=== PATIENT | female | born 1965 | race Caucasian/White ===

== ENCOUNTER 2019-04-07 18:20 | Emergency (ER) | payer SELFPAY ==
[~2019-04-07] VITALS: Ht 167.6 cm; Wt 122.5 kg
== END 2019-04-07 18:40 | disposition home or self-care (01) ==
LOC: ER 18:20
DX: L03.031 Cellulitis of right toe (principal); E11.22 Type 2 diabetes mellitus with diabetic chronic kidney disease; N18.9 Chronic kidney disease, unspecified; F32.9 Major depressive disorder, single episode, unspecified
CPT/HCPCS: 99283

== ENCOUNTER 2019-07-29 22:20 | Inpatient (IN) | payer OTHER ==
[~2019-07-29] VITALS: Ht 167.6 cm; Wt 122.5 kg
--- OUTSIDE RECORDS SUMMARY | 2019-07-29 22:23 | XMS REPORT ---
Author Author [facility] Organization [facility] Address [address] [place] [address] Phone Unavailable Care Team Providers Care Senior Oracle Pl Sql Developer Name Role Phone NO, PCP PCP Unavailable Problems This patient has no known problems. Allergies, Adverse Reactions, Alerts This patient has no known allergies or adverse reactions. Medications This patient has no known medications. Procedures This patient has no known procedures. Encounters Start Date/Time End Date/Time Encounter Type Admission Type [facility] Care Department Encounter ID Source 2019-04-12 04:46:00 2019-04-11 17:16:00 Inpatient E [facility] MED [id number] [facility] 2019-04-07 18:20:00 2019-04-07 18:40:00 Departed Emergency Room [facility] [id number] [facility] Results This patient has no known results.
--- NOTE | 2019-07-29 22:59 | Emergency Department Note ---
History of Present Illnes History of Present Illness Chief Complaint: Extremity Trauma/Pain History of Present Illness This is a 54 year old female infection of the right toe. Prior h/o of amputation of digits of the L foot. Seen by her dosimetrist earlier this week. Patient unclear as to wether she took outpatient abx. Denies systemic signs of illness. . Historian: Patient Arrival Mode: Car Onset (how long ago): day(s) (3) Location: right foot Radiation: non-radiation Severity: moderate Onset quality: gradual Duration (how long): day(s) (3) Timing of current episode: constant Progression: worsening Chronicity: new Context: recent illness, recent surgery, recent immobilization, recent travel, trauma/injury, new medications, hx of DVT/PE, non-compliance w/ medications, other Relieving factors: none Exacerbating factors: none Associated symptoms: denies other symptoms Treatments prior to arrival: none Past Medical/Family History Physician Review I have reviewed the patient's past medical and family history. Any updates have been documented here. Past Medical History Recent Fever: No Clinical Suspicion of Infectio: Yes New/Unexplained Change in Ment: No Past Medical History: Hypertension, Diabetes, Depression, Hyperlipedemia, Chronic Kidney Disease Other Medical History: depression Past Surgical History: Cholecysctectomy, T&A, Tubal Ligation Other Surgery: TOE AMPUTATIONS, CARPAL TUNNEL SURGERY gastric sleeve Social History Smoking Cessation: Never Smoker Alcohol Use: None Any Illegal Drug Use: No Family History Family history of heart diseas: Yes Other Last Tetanus: unk Review of Systems Review of Systems Constitutional: no symptoms EENTM: no symptoms Cardiovascular: no symptoms Respiratory: no symptoms Gastrointestinal: no symptoms Genitourinary: no symptoms Musculoskeletal: no symptoms Neurological: no symptoms Psychological: no symptoms Endocrine: no symptoms Hematological/Lymphatic: no symptoms Review of other systems All other systems reviewed and negative. Physical Exam Related Data Allergies: Coded Allergies: No Known Allergies (Unverified , 04/07/19) Triage Vital Signs Vital Signs Date Time Temp Pulse Resp B/P (MAP) Pulse Ox O2 Delivery O2 Flow Rate FiO2 07/29/19 22:40 98.4 74 20 144/72 100 Physical Exam CONSTITUTIONAL Constitutional: well-developed, well-nourished, morbidly obese HENT HENT: normocephalic, atraumatic, oropharynx clear/moist, nose normal HENT L/R: left ext ear normal, right ext ear normal EYES Eyes: PERRL, conjunctivae normal NECK Neck: ROM normal PULMONARY Pulmonary: effort normal, breath sounds normal CARDIOVASCULAR Cardiovascular: regular rhythm, heart sounds normal, capillary refill normal, normal rate GASTROINTESTINAL Abdominal: soft, nontender, bowel sounds normal GENITOURINARY Genitourinary: exam deferred SKIN Skin: other (1 cm ulcer distal 3rd digit . Erythema entirety of 3rd digit. Ascending lympangitis dorsal L foot) MUSCULOSKELETAL Musculoskeletal: ROM normal NEUROLOGICAL Neurological: alert, oriented x 3, no gross motor or sensory deficits PSYCHOLOGICAL Psychological: mood/affect normal, judgement normal Results Laboratory Lab results reviewed: Yes Laboratory comments Laboratory Tests Test 07/29/19 23:55 07/29/19 23:27 White Blood Count 7.98 x10e3/uL (4.8-10.8) Red Blood Count 3.78 x10e6/uL (3.6-5.1) Hemoglobin 11.3 g/dL (12.0-16.0) Hematocrit 34.8 % (34.2-44.1) Mean Corpuscular Volume 92.1 fL (81-99) Mean Corpuscular Hemoglobin 29.9 pg (28-32) Mean Corpuscular Hemoglobin Concent 32.5 g/dL (31-35) Red Cell Distribution Width 13.1 % (11.7-14.4) Platelet Count 263 x10e3/uL (140-360) Neutrophils (%) (Auto) 62.3 % (38.7-80.0) Lymphocytes (%) (Auto) 28.4 % (18.0-39.1) Monocytes (%) (Auto) 6.5 % (4.4-11.3) Eosinophils (%) (Auto) 2.0 % (0.0-6.0) Basophils (%) (Auto) 0.4 % (0.0-1.0) Neutrophils # (Auto) 5.0 (2.1-6.9) Lymphocytes # (Auto) 2.3 (1.0-3.2) Monocytes # (Auto) 0.5 (0.2-0.8) Eosinophils # (Auto) 0.2 (0.0-0.4) Basophils # (Auto) 0.0 (0.0-0.1) Absolute Immature Granulocyte (auto 0.03 x10e3/uL (0-0.1) Sodium Level 137 mmol/L (136-145) Potassium Level 5.5 mmol/L (3.5-5.1) Chloride Level 104 mmol/L (98-107) Carbon Dioxide Level 24 mmol/L (22-29) Anion Gap 14.5 mmol/L (8-16) Blood Urea Nitrogen 23 mg/dL (7-26) Creatinine 1.36 mg/dL (0.57-1.11) Estimat Glomerular Filtration Rate 41 ML/MIN (60-) BUN/Creatinine Ratio 17 (6-25) Glucose Level 157 mg/dL (74-118) Calcium Level 9.8 mg/dL (8.4-10.2) Procedures 12 Lead ECG Interpretation Label Pinker: Interpreted by ED physician Date: July 30, 2019 Time: 00:09 Prior OPENING MACHINE CLEANER tracings: reviewed Rhythm: sinus rhythm Rate: normal BPM: 62 QRS axis: normal (Narrow QRS) ST segments normal: Yes T waves normal: Yes Other findings: LVH Clinical Impression: non-specific ECG Assessment & Plan Assessment & Plan Final Impression: (1) Cellulitis of third toe, right (2) Ulcer of toe due to diabetes (3) Renal insufficiency (4) Hyperkalemia Assessment & Plan Patient given IV Unasyn for infection. Elevated potassium noted and EKG noted to have narrow QRS complex. 10 mg neb albuterol and 80 mg IV Lasix given. Consult placed to podiatry and ID. Plan to admit to the hospital. Depart Disposition: ADMITTED Last Vital Signs Date Time Temp Pulse Resp B/P (MAP) Pulse Ox O2 Delivery O2 Flow Rate FiO2 07/29/19 22:40 98.4 74 20 144/72 100 Home Meds Reported Medications Metformin Hcl (METFORMIN HCL ER) 500 Mg Tab.er.24, 500 MG PO BID, #60 TAB 07/30/19 Insulin Detemir (Levemir Flextouch) 100 Unit/1 Ml Insuln.pen, 55 UNITS SC BID, UNIT 07/30/19 Trazodone Hcl (TRAZODONE HCL) 50 Mg Tablet, 150 MG PO DAILY, #30 TAB 07/30/19 Melatonin (MELATONIN) 3 Mg Tablet.er, 10 MG PO DAILY 07/30/19 Omeprazole (OMEPRAZOLE) 40 Mg Capsule.dr, 40 MG PO DAILY 07/30/19 Citalopram Hydrobromide (CITALOPRAM HBR) 20 Mg Tablet, 40 MG PO DAILY, TAB 07/30/19 Pregabalin (LYRICA) 150 Mg Capsule, 300 MG PO DAILY, CAP 07/30/19 Gemfibrozil (GEMFIBROZIL) 600 Mg Tablet, 600 MG PO DAILY 07/30/19 Lovastatin (LOVASTATIN) 40 Mg Tablet, 40 MG PO DAILY THERAPEUTICALLY SUBSTITUTED WITH SIMVASTATIN 20MG 07/30/19 Medications in the ED Ondansetron HCl 4 mg Q4H PRN IV NAUSEA AND VOMITING; Start 07/29/19 at 23:00; Stop 08/28/19 at 22:59 Sodium Chloride 1,000 ml @ 125 mls/hr Q8H IV Last administered on 07/29/19at 23:43; Admin Dose 125 MLS/HR; Start 07/29/19 at 23:00; Stop 08/28/19 at 22:59 Morphine Sulfate 4 mg Q4H PRN IV SEVERE PAIN (7-10); Start 07/29/19 at 23:00; Stop 07/29/19 at 23:15; Status DC Ondansetron HCl 4 mg Q4H PRN IV NAUSEA AND VOMITING; Start 07/29/19 at 23:00; Stop 08/28/19 at 22:59 Sodium Chloride 1,000 ml @ 125 mls/hr Q8H IV Last administered on 07/29/19at 23:43; Admin Dose 125 MLS/HR; Start 07/29/19 at 23:00; Stop 08/28/19 at 22:59 Morphine Sulfate 4 mg Q4H PRN IV SEVERE PAIN (7-10); Start 07/29/19 at 23:00; Stop 07/29/19 at 23:15; Status DC SHAYLEE OBRIEN DO July 29, 2019 22:59
[2019-07-29] MEDS ORDERED: MORPHINE SULFATE 2 MG/ML SYR 1ML IV PRN (23:00)
[2019-07-29] MEDS ORDERED: ONDANSETRON HCL INJ 2MG/ML 2ML 2 MG/ML VIAL IV PRN (23:00)
[2019-07-29] MEDS ORDERED: SODIUM CHLORIDE 0.9% 1000ML 1,000 ML IV SCH (23:00)
--- OUTSIDE RECORDS SUMMARY | 2019-07-29 23:18 | XMS REPORT ---
Author Author [facility] Address [address] [place] [address] Phone Unavailable Care Team Providers Care Snuff Blender Name Role Phone NO, PCP PCP Unavailable Problems This patient has no known problems. Allergies, Adverse Reactions, Alerts This patient has no known allergies or adverse reactions. Medications This patient has no known medications. Procedures This patient has no known procedures. Encounters Start Date/Time End Date/Time Encounter Type Admission Type [facility] Care Department Encounter ID Source 2019-04-12 04:46:00 2019-04-11 17:16:00 Inpatient E [facility] MED [id number] [facility] 2019-04-07 18:20:00 2019-04-07 18:40:[address] [facility] [id number] [facility] Results This patient has no known results.
[2019-07-29] MEDS ORDERED: SODIUM CHLORIDE 0.9% 1000ML 1,000 ML ONE (23:20)
[2019-07-29 23:40] LABS: BASOPHILS % 0.4 % (0.0-1.0); EOSINOPHILS # (AUTO) 0.2 (0.0-0.4); HEMATOCRIT 34.8 % (34.2-44.1); HEMOGLOBIN 11.3 g/dL (12.0-16.0); LYMPHOCYTES # (AUTO) 2.3 (1.0-3.2); LYMPHOCYTES % 28.4 % (18.0-39.1); MEAN CORPUSCULAR HEMOGLOBIN 29.9 pg (28-32); MEAN CORPUSCULAR HGB CONC 32.5 g/dL (31-35); MEAN CORPUSCULAR VOLUME 92.1 fL (81-99); MONOCYTES # (AUTO) 0.5 (0.2-0.8); MONOCYTES % 6.5 % (4.4-11.3); NEUTROPHILS % 62.3 % (38.7-80.0); PLATELET COUNT 263 x10e3/uL (140-360); RED BLOOD COUNT 3.78 x10e6/uL (3.6-5.1); RED CELL DISTRIBUTION WIDTH 13.1 % (11.7-14.4)
[2019-07-29 23:56] LABS: ANION GAP 14.5 mmol/L (8-16); CALCIUM 9.8 mg/dL (8.4-10.2); CREATININE, SERUM 1.36 mg/dL (0.57-1.11); POTASSIUM 5.5 mmol/L (3.5-5.1)
[2019-07-30] VITALS (7 sets, daily range): BP systolic 107–158; BP diastolic 52–98
[2019-07-30] MEDS ORDERED: ALBUTEROL SULF 0.083% NEB SOLN 3 ML NEB NEB STA (00:08)
[2019-07-30] MEDS ORDERED: FUROSEMIDE INJ 10 MG/ML 4 ML VIAL IV STA (00:08)
--- NOTE | 2019-07-30 00:30 | NUR ---
No tele boxes available at this time
--- NOTE | 2019-07-30 00:38 | NUR ---
ER MD states patient does not need tele monitoring at this time.
--- NOTE | 2019-07-30 01:15 | NUR ---
RECEIVED PATIENT FROM ER. PATIENT IS AAOX3, RESP EVEN AND UNLABORED. ORIENTED PATIENT TO ROOM. RIGHT FOOT WOUND NOTED, DRESSING DRY AND INTACT. CALL LIGHT WITHIN REACH. INSTRUCT PATIENT TO CALL FOR ASSISTANCE. BED LOW/LOCKED. CONTINUE TO MONITOR CLOSELY
[2019-07-30] MEDS ORDERED: LEVEMIR FL100 UNIT/1 SC (04:20)
[2019-07-30] MEDS ORDERED: MELATONIN3 M1 PO (04:20)
[2019-07-30] MEDS ORDERED: LOVASTATIN40 MG PO (04:20)
[2019-07-30] MEDS ORDERED: OMEPRAZOLE40 MG PO (04:20)
[2019-07-30] MEDS ORDERED: TRAZODONE HCL50 MG PO (04:20)
[2019-07-30] MEDS ORDERED: LYRICA150 MG PO (04:20)
[2019-07-30] MEDS ORDERED: CITALOPRAM HBR20 MG PO (04:20)
[2019-07-30] MEDS ORDERED: GEMFIBROZIL600 MG PO (04:20)
[2019-07-30] MEDS ORDERED: METFORMIN HCL500 M2 PO (04:20)
--- NOTE | 2019-07-30 06:45 | NUR ---
AYSE CALLAWAY AND DR GONZALEZ FOR CONSULT
--- NOTE | 2019-07-30 07:04 | NUR ---
LAB CALLED AND NOTIFIED THAT PATIENT REFUSED LAB DRAW THAT THIS TIME. NOTIFIED AM NURSE
[2019-07-30] MEDS ORDERED: AMPICILLIN SOD/SULBACTAM 3GM 100 ML IV SCH ×2 (09:00)
[2019-07-30] MEDS ORDERED: DEXTROSE 50% SYRINGE 50 ML IV PRN (09:45)
[2019-07-30] MEDS ORDERED: SOD POLYSTYRENE SULFONATE SUSP 15 GM/60 ML BTL PR ONE (09:45)
[2019-07-30 11:12] LABS: BASOPHILS % 0.2 % (0.0-1.0); EOSINOPHILS # (AUTO) 0.1 (0.0-0.4); HEMATOCRIT 34.6 % (34.2-44.1); HEMOGLOBIN 11.2 g/dL (12.0-16.0); LYMPHOCYTES # (AUTO) 2.8 (1.0-3.2); LYMPHOCYTES % 32.5 % (18.0-39.1); MEAN CORPUSCULAR HEMOGLOBIN 29.5 pg (28-32); MEAN CORPUSCULAR HGB CONC 32.4 g/dL (31-35); MEAN CORPUSCULAR VOLUME 91.1 fL (81-99); MONOCYTES # (AUTO) 0.6 (0.2-0.8); MONOCYTES % 6.8 % (4.4-11.3); NEUTROPHILS # (AUTO) 5.1 (2.1-6.9); NEUTROPHILS % 59.2 % (38.7-80.0); PLATELET COUNT 234 x10e3/uL (140-360); RED CELL DISTRIBUTION WIDTH 12.9 % (11.7-14.4)
[2019-07-30 11:22] LABS: INR 0.86; PROTHROMBIN TIME 12.2 seconds (11.9-14.5)
[2019-07-30 11:23] LABS: PARTIAL THROMBOPLASTIN TIME 27.5 seconds (23.8-35.5)
--- NOTE | 2019-07-30 11:58 | History and Physical ---
PRIMARY CARE PHYSICIAN: Dr. Froilan Isabel. CONSULTANTS: 1. Dr. Mickey Childers. 2. Dr. Kenzie Lopez. CHIEF COMPLAINT: Right middle toe infected diabetic toe ulcer. HISTORY: A 54 years female, morbidly obese, diabetes type 2, on insulin therapy, has multiple toe amputations, especially on the left foot only the 5th toe remain and on the right foot second toe was also amputated. The patient had her 3rd toe infection with redness and ulcer. This has been going on for weeks. The patient did have some imaging tests done with Dr. Childers. MRI was done recently, the patient has not received as of yet. The patient is otherwise stable. Why the patient came in because the toe was more painful. She had circulation workup previously and was adequate per patient. PAST MEDICAL HISTORY: Multiple diabetic toe ulcer with previous amputation. Morbid obesity. Diabetes type 2, on insulin therapy. Insomnia, depression, anxiety disorder, hypertension, and chronic kidney disease. PAST SURGICAL HISTORY: 1. Multiple toe amputations noted on both foot. 2. Carpal tunnel surgery. 3. Cholecystectomy. 4. Tubal ligation. SOCIAL HISTORY: The patient does not smoke or use alcohol. She also had a gastric sleeve. SOCIAL HISTORY: The patient does not smoke or use alcohol. No regular drugs. ALLERGIES: NO KNOWN ALLERGIES. HOME MEDICATIONS: List reviewed. PHYSICAL EXAMINATION: VITAL SIGNS: Temperature is 98, blood pressure 119/52, pulse rate is 89, and respirations 18. GENERAL: The patient is not in acute distress. She is awake. HEENT: Normocephalic and atraumatic. Pupils reactive. Anicteric. NECK: Supple grossly. PULMONARY: Diminished breath sounds. CARDIOVASCULAR: Regular rate and rhythm. ABDOMEN: Soft, morbidly obese. EXTREMITIES: Left toe from 1st to 4th toe amputation, 5th toe remain. Right 2nd toe amputation. The patient has a 3rd toe significantly infected diabetic toe ulcer. NEUROLOGIC: No focal deficit except for neuropathy. LABORATORY DATA: Sodium 137, potassium 5.5, chloride 104, bicarb 24, BUN 23, creatinine 1.3, and glucose 157. WBC 7.9, hemoglobin 11, hematocrit 35, and platelets 263. IMPRESSION: 1. Infected diabetic toe ulcer on the right foot, 3rd toe, associated with ulcer and infection of the skin, possible osteomyelitis. 2. Diabetes type 2, on insulin therapy. 3. Morbidly obese. 4. Hypertension. 5. Chronic kidney disease. PLAN: Continue with home medication with some adjustment. Zosyn IV antibiotic. Consultation with Dr. Lopez and Dr. Mickey Childers. We will obtain line access. We will repeat lab work in the morning. We will monitor the patient closely at this time. We will follow up on Dr. Childers recommendation on further treatment. MD KODY Unger/MODL /[id number]
[2019-07-30] MEDS ORDERED: PIPER-TAZ 3.375 GM 50 ML IV SCH (12:00)
[2019-07-30 12:42] LABS: ALBUMIN 3.4 g/dL (3.5-5.0); ALBUMIN/GLOBULIN RATIO 0.9 (0.8-2.0); ANION GAP 18.9 mmol/L (8-16); CREATININE, SERUM 1.67 mg/dL (0.57-1.11); POTASSIUM 4.9 mmol/L (3.5-5.1)
[2019-07-30] MEDS: INSULIN GLARGINE 100 UNITS/ML VIAL SQ SCH ×2 (12:49→20:51)
[2019-07-30] MEDS: INSULIN LISPRO 100 UNIT/1 ML 3ML VIAL SQ SCH ×3 (12:49→20:50)
--- NOTE | 2019-07-30 13:04 | Diagnostic Imaging Report ---
ADDENDUM #1 Addendum: The patient is status post amputation of the second toe at the level of the distal interphalangeal joint. There is cortical erosion at the margin of the distal tuft of the third toe distal phalanx, with associated soft tissue swelling. Findings suspicious for osteomyelitis. Signed by: Dr. Scooter Dumont M.D. on 07/31/2019 11:55 AM ORIGINAL REPORT Exam: Right foot series, 3 views. Clinical History: Right foot/toe diabetic ulcer Comparison: None. Findings: 3 views of the right foot. There is normal bone mineralization. Negative for acute, displaced fracture or dislocation. Status post amputation of the first toe at the level of the mid diaphysis of the first proximal phalanx No definite cortical erosion or destruction is noted. Large anterior and posterior calcaneal enthesophytes. Mild degenerative changes in the midfoot/hindfoot joints. Mild soft tissue swelling at the dorsal aspect of the foot. No soft tissue defects are noted. Impression: 1. No cortical erosion or destruction to suggest osteomyelitis. Signed by: Dr. Scooter Dumont M.D. on 07/30/2019 1:00 PM
--- NOTE | 2019-07-30 13:50 | NUR ---
Recheck blood sugar level is 387.
--- NOTE | 2019-07-30 14:12 | Consultation ---
DATE OF CONSULTATION: 07/30/[address] Mickey Childers. REASON FOR CONSULTATION: Very swollen 3rd toe left foot with pain to the anterior aspect of the left leg with the patient being an insulin-dependent diabetic. Ulceration being present for more than four weeks now. HISTORY OF PRESENT ILLNESS: This is a pleasant 54-year-old white female, who was seen at bedside, who relates that she has had a nonhealing lesion with a very swollen toe for several months. She was having some discomfort and pain, was seen by Dr. Childers approximately a week ago. She was supposed to have an MRI, but secondary to the pain, she presented through the emergency room and was admitted. PAST MEDICAL HISTORY: Remarkable for insulin-dependent diabetes, hypercholesteremia, hypertension with peripheral neuropathy. PAST SURGICAL HISTORY: Remarkable for amputation of digits 1st through 4th of the left foot with partial amputation of the right great toe, carpal tunnel syndrome, stomach sleeve and cholecystectomy. ALLERGIES: THE PATIENT DENIES. CURRENT MEDICATIONS: Noted list in the chart including IV Zosyn. SOCIAL HISTORY: Denies any smoking, drinking, or recreational drug use. Lives with her son, just moved from [place] this past March. FAMILY HISTORY: Remarkable for diabetes. Both parents . REVIEW OF SYSTEMS: CARDIAC: Denies any palpitations or arrhythmias. RESPIRATORY: Denies any shortness of breath or productive cough. GASTROINTESTINAL: Denies any diarrhea or constipation. GENITOURINARY: Denies any hematuria or problems voiding. PHYSICAL EXAMINATION: VITAL SIGNS: Afebrile, pulse rate 89, respirations 20, blood pressure 119/52, O2 saturation 95%. Podiatric physical examination reveals the following: VASCULATURE: Pedal pulses of both the DP and PT are palpable. Skin temperature warm to touch. CFT to all toes present is less than 4 seconds. NEUROLOGICAL: Reveals loss of protective sensation when utilizing Ashton-Lio 5.07 monofilament wire. MUSCULOSKELTAL: Reveals muscle mass to be symmetrical, muscle strength to be 4 to 5/5 to all muscle groups. DERMATOLOGIC: Has grade 2 lesions distal aspect 3rd toe right foot. Very swollen toe when compared to the adjacent toes. LABORATORY DATA: Noted. She has a white blood cell count of 8.6, hemoglobin 11.2, hematocrit 34.6 with a platelet count of 234. MRI results still pending. ASSESSMENT: Possible osteomyelitis with a grade 2 ulceration with cellulitis and diabetic neuropathy. PLAN: X-rays, three views will be taken. We will await MRI results. Continue IV antibiotics. We will start Bactroban ointment followed by diluted wet-to-dry. We will continue to follow until Dr. Childers gets back on the case possibly on Thursday. DANYELL Montes/JIMENA /[id number]
[2019-07-30] MEDS: CEFTRIAXONE SOD 2 GM/NS 100 ML 100 ML IV SCH (15:31)
[2019-07-30] MEDS: MUPIROCIN 2% OINT 22 GM TUBE TOP SCH (17:00)
[2019-07-30] MEDS: VANCOMYCIN 750MG/NS 150ML IVPB 150 ML IV SCH (17:07)
[2019-07-30] MEDS: PREGABALIN 75 MG CAP PO SCH (17:07)
--- NOTE | 2019-07-30 19:28 | NUR ---
Patient received sitting up in bed. AAO x 4. Patient had no complaints of pain. Respirations even and non-labored. Safety measures in place. Patient instructed to call for assistance when needed. Call light within reach.
[2019-07-30] MEDS: SIMVASTATIN 40 MG TAB PO SCH (20:50)
[2019-07-30] MEDS: MELATONIN 5 MG TABLET PO SCH (20:50)
--- NOTE | 2019-07-30 22:30 | NUR ---
PICC placement completed. Chest X-ray ordered to verify placement.
--- NOTE | 2019-07-30 23:50 | Diagnostic Imaging Report ---
EXAMINATION: CHEST XRAY LINE PLACEMENT INDICATION: PICC line placement COMPARISON: None FINDINGS: Limited radiograph secondary to portable technique and exclusion of the left lung base from the field of view. TUBES and LINES: Right arm PICC terminates in the SVC. LUNGS: Low lung volumes. Mild patchy bibasilar opacity, likely atelectasis. There is no evidence of pneumonia or pulmonary edema. PLEURA: No pleural effusion or pneumothorax. HEART AND MEDIASTINUM: The cardiomediastinal silhouette is unremarkable. BONES AND SOFT TISSUES: No acute osseous lesion. Soft tissues are unremarkable. UPPER ABDOMEN: No free air under the diaphragm. IMPRESSION: Right arm PICC terminates in the SVC. No evidence of pneumothorax. Signed by: Dr. Deedee Plata MD on 07/30/2019 11:47 PM
[2019-07-31] VITALS (7 sets, daily range): BP systolic 117–149; BP diastolic 59–80
[2019-07-31] MEDS: VANCOMYCIN 750MG/NS 150ML IVPB 150 ML IV SCH ×2 (04:20→15:41)
--- NOTE | 2019-07-31 07:00 | NUR ---
Walking rounds done. Bedside report given to oncoming nurse regarding patient's status.
[2019-07-31 07:12] LABS: ANION GAP 13.4 mmol/L (8-16); CALCIUM 9.7 mg/dL (8.4-10.2); CREATININE, SERUM 1.12 mg/dL (0.57-1.11); POTASSIUM 4.4 mmol/L (3.5-5.1)
[2019-07-31] MEDS ORDERED: TRAZODONE HCL 50 MG TAB PO SCH (09:00)
[2019-07-31] MEDS: GEMFIBROZIL 600 MG TAB PO SCH (09:11)
[2019-07-31] MEDS: PANTOPRAZOLE SOD 40 MG TABEC PO SCH (09:11)
[2019-07-31] MEDS: PREGABALIN 75 MG CAP PO SCH ×2 (09:11→16:37)
[2019-07-31] MEDS: CITALOPRAM HYDROBROMIDE 20 MG TAB PO SCH (09:12)
[2019-07-31] MEDS: INSULIN LISPRO 100 UNIT/1 ML 3ML VIAL SQ SCH ×4 (09:13→21:10)
[2019-07-31] MEDS: INSULIN GLARGINE 100 UNITS/ML VIAL SQ SCH ×2 (09:13→21:15)
--- NOTE | 2019-07-31 12:02 | Diagnostic Imaging Report ---
MRI right foot without contrast, preliminary report: Clinical history: Suspect osteomyelitis. Comparison: Right foot x-rays 07/30/2019 Impression: 1. There is decreased T1 signal and increased T2 and STIR signal involving the distal phalanx of the third toe, with associated moderate soft tissue swelling. Findings suspicious for osteomyelitis.
[2019-07-31] MEDS: CEFTRIAXONE SOD 2 GM/NS 100 ML 100 ML IV SCH (14:54)
[2019-07-31] MEDS: MUPIROCIN 2% OINT 22 GM TUBE TOP SCH (17:24)
--- NOTE | 2019-07-31 18:17 | Consultation ---
DATE OF CONSULTATION: HISTORY OF PRESENT ILLNESS: Ms. Atkinson is lying in bed comfortably. There are no new complaints. She was seen, evaluated, discussed with Dr. Garcia today. Her MRI of the foot, which was done showed distal phalanx of the 3rd toe, associated with soft tissue swelling suspicious for osteomyelitis. MEDICATIONS: She remains on insulin, vancomycin, and ceftriaxone. PHYSICAL EXAMINATION: GENERAL: She is currently alert, oriented, obese, does not seem to be in acute distress. VITAL SIGNS: Stable, afebrile. HEENT: She is not icteric. NECK: Supple. CHEST: Clear. COR: S1, S2. ABDOMEN: Soft and obese. EXTREMITIES: The third toe remains red and swollen. IMPRESSION: 1. Osteomyelitis of the 3rd toe. 2. Obesity. 3. Chronic kidney disease. 4. Diabetes with neuropathy. PLAN: Continue vancomycin and continue cefepime. She may end up losing her toe. Discussed with Podiatry. Further recommendations to follow. Continue to monitor levels. Kenzie Lopez MD ZS/MODL /[id number]
--- NOTE | 2019-07-31 19:05 | NUR ---
RECEIVED THE PATIENT IN REPORT.LYEING IN THE BED.STABLE CONDITION.
[2019-07-31] MEDS ORDERED: ONDANSETRON HCL 4 MG ORAL DISINTEGRATING TAB PO PRN (19:30)
--- NOTE | 2019-07-31 20:28 | Consultation ---
DATE OF CONSULTATION: 07/31/2019 SUBJECTIVE: The patient at bedside, doing better. Denies any history of fever, chills, nausea, or vomiting. OBJECTIVE: VITAL SIGNS: Afebrile. Pulse rate 55, respirations 18, blood pressure 149/74, and O2 saturation 98%. EXTREMITIES: 3rd toe looking a little bit better. Decreased cellulitis. No drainage. DIAGNOSTIC DATA: MRI results suspicious for osteomyelitis. X-rays reviewed, revealing digital osteolysis to the distal phalanx of the 3rd toe left foot with no gas in the tissue. ASSESSMENT: Diabetic neuropathy, osteomyelitis with a grade 2 ulceration. PLAN: We will continue local wound care. Continue IV antibiotics. We will treat conservatively until Dr. Childers follows up on Thursday for final say-so. DANYELL Montes/JIMENA /[id number]
--- NOTE | 2019-07-31 20:45 | NUR ---
Assessment done.no resp.distress.provided snacks.bed locked and in lowest position.phone and call light within reach.instructed to call for assistance as needed.
[2019-07-31] MEDS: SIMVASTATIN 40 MG TAB PO SCH (21:19)
[2019-07-31] MEDS: MELATONIN 5 MG TABLET PO SCH (21:19)
[2019-07-31] MEDS: TRAZODONE HCL 50 MG TAB PO SCH (21:19)
[2019-08-01] VITALS (8 sets, daily range): BP systolic 108–130; BP diastolic 59–85
--- NOTE | 2019-08-01 02:25 | NUR ---
Blood drawn and sent to the lab for vanco trough.pt tolerated well.
[2019-08-01] MEDS: VANCOMYCIN 750MG/NS 150ML IVPB 150 ML IV SCH ×2 (04:09→16:00)
--- NOTE | 2019-08-01 07:00 | NUR ---
Bed side shift report given to oncoming Rn.stable condition.
--- NOTE | 2019-08-01 07:05 | NUR ---
RCD PT AT BED PT IS ALERT AND ORIENTED RESTING ON BED IV PATENT BY SALINE FLUSH BED LOW AND LOCKED CALL LIGHT IN REACH
[2019-08-01] MEDS: PANTOPRAZOLE SOD 40 MG TABEC PO SCH (07:30)
[2019-08-01] MEDS: INSULIN LISPRO 100 UNIT/1 ML 3ML VIAL SQ SCH ×5 (07:30→21:14)
[2019-08-01] MEDS: INSULIN GLARGINE 100 UNITS/ML VIAL SQ SCH ×3 (07:49→21:06)
[2019-08-01] MEDS: MUPIROCIN 2% OINT 22 GM TUBE TOP SCH (09:00)
[2019-08-01] MEDS: GEMFIBROZIL 600 MG TAB PO SCH (09:00)
[2019-08-01] MEDS: PREGABALIN 75 MG CAP PO SCH ×2 (09:00→16:43)
[2019-08-01] MEDS: CITALOPRAM HYDROBROMIDE 20 MG TAB PO SCH (09:00)
--- NOTE | 2019-08-01 11:30 | Progress Note ---
DATE: SUBJECTIVE: The patient is seen and evaluated. Available labs and notes reviewed. REVIEW OF SYSTEMS: No nausea, vomiting, fever, chills, chest pain, shortness of breath, headache, rash, dysuria, polyuria. Pain is controlled. OBJECTIVE: VITAL SIGNS: Temperature 97.7, pulse is 67, respirations 20, blood pressure 116/59. GENERAL: Alert, oriented, pleasant, in no acute distress. CV: S1 and S2. CHEST: Equal expansion. Clear to auscultation. No acute distress. ABDOMEN: Soft, nontender. No distention. HEENT: Moist. No pallor. No JVD. EXTREMITIES: Right 3rd toe seen, seems to be swollen and pink all the way to the metatarsal area on the third toe. No active drainage noted. Eczema spots over bilateral lower extremities also noted. MEDICATIONS: Reviewed. From Infectious Disease point of view, patient is on vancomycin IV and Rocephin. LABORATORY STUDIES: No new CBC or BMP available. Previous white blood cells 8.64, platelet 234, creatinine 1.12. IMAGING: The patient is status post PICC line, 07/29. MRI of the foot showed suspicious for osteomyelitis of distal phalanx of the third toe on the right. ASSESSMENT AND PLAN: 1. Osteomyelitis of the third toe on the right. 2. Obesity. 3. Chronic kidney disease. 4. Diabetes. 5. Diabetic neuropathy. 6. Peripheral neuropathy. 7. Insomnia. 8. Chronic pain. 9. Follow with and continue with wound care, continue with antibiotic, Podiatry noted. Plan is to treat conservatively till seen by Dr. Childers tomorrow. Continue to monitor patient clinically. Follow up with the labs. Discussed with Dr. Lopez in details. Please refer to chart for more information. Dictated by Jay Reynolds PA-C (Al) Kenzie Lopez MD /MODL /[id number]
[2019-08-01] MEDS: CEFTRIAXONE SOD 2 GM/NS 100 ML 100 ML IV SCH (15:00)
--- NOTE | 2019-08-01 15:16 | Consultation ---
DATE OF CONSULTATION: 08/01/2019 SUBJECTIVE: The patient is seen at bedside, doing somewhat better. Denying any history of fever, chills, nausea, or vomiting. OBJECTIVE: VITAL SIGNS: Afebrile, pulse 84, respirations 20, blood pressure 120/85, O2 saturation 100%. LABORATORY DATA: Labs show white blood cell count of 8.64. Still has a very swollen 3rd toe, right foot when compared to adjacent toes with lesion to the distal aspect, some drainage. ASSESSMENT: Osteomyelitis, 3rd toe, right foot, grade 2 ulcer with cellulitis and edema. PLAN: We will continue local wound care and IV antibiotics. Dr. Childers will follow up. The patient relates that she would like her toe to be amputated. DANYELL Montes/JIMENA /[id number]
--- NOTE | 2019-08-01 19:12 | NUR ---
PT RESTING ON BED BED SIDE REPORT GIVEN TO ONCOMING NURSE
[2019-08-01] MEDS: MELATONIN 5 MG TABLET PO SCH (21:02)
[2019-08-01] MEDS: SIMVASTATIN 40 MG TAB PO SCH (21:02)
[2019-08-01] MEDS: TRAZODONE HCL 50 MG TAB PO SCH (21:02)
[2019-08-02] VITALS (7 sets, daily range): BP systolic 103–136; BP diastolic 56–73
[2019-08-02] MEDS: VANCOMYCIN 750MG/NS 150ML IVPB 150 ML IV SCH ×2 (04:00→17:40)
[2019-08-02] MEDS: CITALOPRAM HYDROBROMIDE 20 MG TAB PO SCH (09:14)
[2019-08-02] MEDS: PANTOPRAZOLE SOD 40 MG TABEC PO SCH (09:14)
[2019-08-02] MEDS: GEMFIBROZIL 600 MG TAB PO SCH (09:15)
[2019-08-02] MEDS: PREGABALIN 75 MG CAP PO SCH ×2 (09:15→17:40)
--- NOTE | 2019-08-02 10:59 | Progress Note ---
DATE: SUBJECTIVE: The patient is seen and evaluated. Available labs and notes reviewed. REVIEW OF SYSTEMS: No new complaints. No nausea, vomiting, fever, chills, chest pain, shortness of breath, headache, rash, or dysuria. PHYSICAL EXAMINATION: VITAL SIGNS: Temperature 97.5, pulse 56, respirations 18, and blood pressure 110/71. GENERAL: Alert and oriented, no acute distress. Comfortable in bed. CV: S1-S2. CHEST: Equal expansion. Clear to auscultation. No acute distress. ABDOMEN: Soft. No tenderness or distention. HEENT: Moist. No pallor. No JVD. EXTREMITIES: Right 3rd toe cellulitis with edema and erythema. MEDICATIONS: Medication list reviewed. As far as Infectious Disease point of view, the patient is on vancomycin IV and Rocephin. LABORATORY STUDIES: No new CBC or BMP. Serology: Coronavirus PCR 07/28 is pending. Toxicology; vancomycin trough 11.3 on 07/31. IMAGING: No new radiology studies available. ASSESSMENT AND PLAN: 1. Right 3rd toe osteomyelitis. 2. Right 3rd toe cellulitis. 3. Obesity. 4. Chronic kidney disease. 5. Diabetes. 6. Peripheral neuropathy. 7. Insomnia. 8. Pending Dr. Childers input, the patient most likely will end up with amputation. Continue with antibiotics. Continue with the wound care at this point. Further management of this patient based on daily findings on laboratory and physical examination. Discussed with Dr. Lopez in details. Dictated by Jay Reynolds PA-C (Al) Kenzie Lopez MD /MODL /[id number]
--- NOTE | 2019-08-02 11:20 | Consultation ---
DATE OF CONSULTATION: REASON FOR CONSULTATION: Infection of the foot. HISTORY OF PRESENT ILLNESS: This patient who is a very pleasant 54-year-old with history of obesity, history of diabetes mellitus, history of neuropathy, history of previous surgery on the foot, comes in with the third toe of the right foot redness and swollen. The patient had an ulcer on the base of the tail of the toe. She was seen by Dr. Childers. She was supposed to have an MRI, but she could not do it. The patient came to the emergency room. PAST MEDICAL HISTORY: History of obesity, diabetes mellitus, hypercholesteremia, neuropathy, hypertension, and peripheral vascular disease, amputation of the 1st digit through the 4th digit . ALLERGIES: NKA. SOCIAL HISTORY: There is no smoking, drug abuse, or alcohol abuse. FAMILY HISTORY: Otherwise, unremarkable. LABORATORY DATA: White count 8.6, hemoglobin 11. Her sodium 136, potassium 4.9, creatinine 1.67. MEDICATIONS: The patient is currently on insulin and Zosyn. PHYSICAL EXAMINATION: GENERAL: She is currently alert, oriented, does not seem in acute distress. VITAL SIGNS: Stable. Currently, afebrile. HEENT: She is not icteric. NECK: Supple. CHEST: Clear. COR: S1, S2. ABDOMEN: Soft. EXTREMITIES: In the foot, there is erythema, there is edema involving the first big toe. IMPRESSION: 1. The patient has osteomyelitis, I am also concerned about peripheral vascular disease. 2. Chronic kidney disease. 3. Diabetes mellitus. 4. Hypertension. I would recommend to put the patient on Rocephin 2 g daily, vancomycin 1 g daily. Obtain sedimentation rate and C-reactive protein. Obtain MRI without contrast. Recheck CBC. Recheck Chem panel. Further recommendations to follow. MD HEBERT Simmons/MODL /[id number]
[2019-08-02] MEDS: INSULIN LISPRO 100 UNIT/1 ML 3ML VIAL SQ SCH ×3 (11:30→21:00)
--- NOTE | 2019-08-02 14:31 | NUR ---
WOUND CARE CONSULT FOR 54 YO FEMALE HX OF CELLULITIS RIGHT 3RD TOE LEVI 14 ON MODERATE PUP STATUS AND INTERVENTIONS AND VISCO MATTRESS LABS: WBC-8.64 HGB_11.2 GLUCOSE-210 SKIN ASSESSMENT COMPLETE PATIENT PRESENTS WITH SCABBED BLISTER AT TIP OF RIGHT 3RD TOE 2CM X2CM TOE SWOLLEN AND BRIGHT RED RECOMMENDATIONS: NURSING TO CONTINUE TO MAINTAIN MODERATE PUP STATUS AND INTERVENTIONS AND VISCO MATTRESS NURSING TO CONTINUE TO ASSIST PATIENT OUT OF BED FOR MEALS AND MUCH TOLERATED NURSING TO CONTINUE TO ASSIST PATIENT NEEDED WITH MEALS AND NUTRITIONAL SUPPLEMENTS TO ENSURE PROPER REQUIREMENTS FOR HEALING NURSING TO CONTINUE TO OFFLOAD FEET AND HEELS NEEDED WITH PILLOW SUSPENSION WHEN IN BED CURRENT MD ORDER IS NURSING TO CLEAN SCABBED BLISTER AT TIP OF RIGHT 3RD TOE WITH SALINE DAILY AND APPLY MUPIROCIN OINTMENT Addendum: 08/02/19 at 1439 by Naveen Knutson RN Amended: Links added.
[2019-08-02] MEDS: CEFTRIAXONE SOD 2 GM/NS 100 ML 100 ML IV SCH (15:00)
[2019-08-02] MEDS: MUPIROCIN 2% OINT 22 GM TUBE TOP SCH (17:40)
--- NOTE | 2019-08-02 19:17 | NUR ---
RECEIVED PATIENT IS AAOX3, RESP EVEN AND UNLABORED. RIGHT FOOT WOUND NOTED, . CALL LIGHT WITHIN REACH. INSTRUCT PATIENT TO CALL FOR ASSISTANCE. BED LOW/LOCKED. CONTINUE TO MONITOR .
--- NOTE | 2019-08-02 19:20 | NUR ---
walking rounds complete, pt stable at this time, report given to oncoming nurse.
--- NOTE | 2019-08-02 19:46 | Consultation ---
DATE OF CONSULTATION: CHIEF COMPLAINT AND HISTORY OF CHIEF COMPLAINT: Ms. Atkinson is well known to me from outpatient visits. She has a history of many digital amputations by previous physicians and presented to me with an ulceration on the distal aspect of the 3rd digit of the right foot. The patient stated that for the past several weeks, she has noticed an increase in redness, swelling, and drainage. She was sent for MRI on an outpatient basis and ultimately has come in through the emergency room this past holiday weekend due to an increase in redness, swelling, and pain and drainage from the 3rd toe. She stated that she recognized the symptoms from her previous amputation and was here for IV antibiotics and amputation. The patient states that she previously had vascular evaluations and treatments and were told that vascular status was adequate. PAST MEDICAL HISTORY: The patient's previous medical history is positive for diabetes. She has had multiple ulcerations and amputations as previously mentioned, both feet. The patient does have morbid obesity, depression, and anxiety with hypertension and chronic renal disease, which she states is stable. PAST SURGICAL HISTORY: Her previous surgical history includes the multiple digital amputations previously mentioned as well as carpal tunnel surgery and a cholecystectomy, tubal ligation. She does have a gastric sleeve. SOCIAL HISTORY: The patient does not utilize alcohol or smoke tobacco products. Also, fails to reveal any regular use of illicit drugs. ALLERGIES: NO KNOWN ALLERGIES. HOME MEDICATIONS: Well documented elsewhere within the chart. REVIEW OF SYSTEMS: Otherwise negative. The patient is afebrile on today's visit. PHYSICAL EXAMINATION: Physical evaluation of lower extremity: VASCULAR STATUS: The patient has mildly palpable dorsalis pedis pulses bilaterally. Nonpalpable posterior tibial pulses bilaterally. DERMATOLOGIC: There are multiple incisions of well-healed amputations, all the 5th digit on the left foot have been amputated and the 2nd toe on the right foot has been partially amputated. The 3rd toe is now ulcerated with an open draining wound to the distal aspect of the 3rd toe. Radiographs and MRI are positive for osteomyelitis of the 3rd toe on the right foot. She still has significant redness, swelling and drainage on that foot. IV antibiotics have been established and started. Dr. Lopez is monitoring that. She also has requested I do agree with benefit from a digital amputation on the 3rd toe on the right foot due to chronic osteomyelitis as well as acute. At this point, surgery will be scheduled. She needs to continue with IV antibiotics. Thursday morning is available and she has accepted that surgery time. IV antibiotics tonight and tomorrow. She will likely be able to discharge for further home treatment or step-down care at LTAC or appropriate facility pending insurance coverage, but will need continued IV antibiotics after discharge. She should be free to discharge after the surgery, either late or Thursday morning. DANYELL Patel/JIMENA /[id number]
[2019-08-02] MEDS: INSULIN GLARGINE 100 UNITS/ML VIAL SQ SCH (21:00)
[2019-08-02] MEDS: MELATONIN 5 MG TABLET PO SCH (21:23)
[2019-08-02] MEDS: SIMVASTATIN 40 MG TAB PO SCH (21:23)
[2019-08-02] MEDS: TRAZODONE HCL 50 MG TAB PO SCH (21:23)
[2019-08-03] VITALS (7 sets, daily range): BP systolic 126–157; BP diastolic 64–70
[2019-08-03] MEDS: VANCOMYCIN 750MG/NS 150ML IVPB 150 ML IV SCH ×2 (04:08→15:19)
--- NOTE | 2019-08-03 06:28 | NUR ---
PT RESTED DURING THE NIGHT.DENIES PAIN CONSENT FOR AMPUTATION OF RT FOOT 3RD IS SIGNED .CALL LIGHT WITH IN REACH .CONTINUE TO MONITOR
--- NOTE | 2019-08-03 07:00 | NUR ---
BEDSIDE ROUNDS COMPLETE NO DISTRESS NOTED, UPDATED ON POC VOICED UNDERSTANDING, DENIES PAIN AT THIS TIME, R PICC LINE IN PLACE CALL LIGHT IN REACH WILL CONTINUE TO MONITOR
--- NOTE | 2019-08-03 07:11 | NUR ---
BEDSIDE REPORT GIVEN TO THE ONCOMING NURSE
--- NOTE | 2019-08-03 07:25 | NUR ---
SPOKE WITH DR GONZALEZ RE: CLARIFICATION OF PTS SX SCHEDULED FOR TODAY, STATES SX IS Thursday10/04/19 AND HIS OFFICE WILL NOTIFY SX OF CHANGE OK TO FEED PATIENT TODAY.
[2019-08-03] MEDS: INSULIN LISPRO 100 UNIT/1 ML 3ML VIAL SQ SCH ×4 (07:30→21:00)
[2019-08-03] MEDS: PANTOPRAZOLE SOD 40 MG TABEC PO SCH (08:30)
[2019-08-03] MEDS: MUPIROCIN 2% OINT 22 GM TUBE TOP SCH (09:00)
[2019-08-03] MEDS: INSULIN GLARGINE 100 UNITS/ML VIAL SQ SCH ×2 (09:00→21:00)
[2019-08-03] MEDS: CITALOPRAM HYDROBROMIDE 20 MG TAB PO SCH (09:59)
[2019-08-03] MEDS: PREGABALIN 75 MG CAP PO SCH ×2 (09:59→16:38)
[2019-08-03] MEDS: GEMFIBROZIL 600 MG TAB PO SCH (09:59)
--- NOTE | 2019-08-03 11:50 | Progress Note ---
DATE: SUBJECTIVE: The patient is seen, evaluated, discussed with Dr. Lopez in details. Please refer to chart for more information. REVIEW OF SYSTEMS: No nausea, vomiting, fever, chills, chest pain, shortness of breath, headache, rash, dysuria. Pain is controlled. PHYSICAL EXAMINATION: VITAL SIGNS: Temperature 97.6, pulse is 79, respirations 20, blood pressure 148/76. GENERAL: Alert and oriented, no acute distress. HEENT: Moist. No pallor. NECK: No JVD. CV: S1, S2. CHEST: Equal expansion. Clear to auscultation. No acute distress. ABDOMEN: Soft, nontender. No distention. EXTREMITIES: Right third toe cellulitis with edema and erythema. MEDICATIONS: Medication list reviewed. As far as Infectious Disease point of view, the patient is on vancomycin IV and Rocephin. LABORATORY STUDIES: No new CBC or BMP available. Serology: Coronavirus PCR 07/28 was not reactive. IMAGING: No new radiology studies available, status post insertion of a PICC line on 07/30/2019. ASSESSMENT AND PLAN: 1. Osteomyelitis of right third toe by MRI. The patient is seen by Podiatry. The patient agreed to amputation, scheduled tentatively for amputation tomorrow morning on , 08/04/2019. We continue with antibiotic at this point. 2. Chronic kidney disease. 3. Diabetes. 4. Hypertension. 5. Continue with antibiotic and this point, monitor antibiotic levels. Continue with wound care. Further management of this patient is based on daily findings on laboratory and physical examination. Thank you for this dictation. Please refer to chart for more information. Discussed with Dr. Lopez in details. Dictated by Jay Reynolds PA-C (Al) Kenzie Lopez MD /MODL /[id number]
[2019-08-03] MEDS: CEFTRIAXONE SOD 2 GM/NS 100 ML 100 ML IV SCH (14:14)
--- NOTE | 2019-08-03 15:11 | Progress Note ---
DATE: The patient is seen today. Preoperatively, prepared for amputation of the 3rd digit of the right foot. All questions asked were answered. The patient agreed to accept all risks inherent to the procedure. N.p.o. after midnight tonight. Labs are stable. Surgical and medical clearance has been achieved. She is scheduled for 8 a.m. tomorrow morning and we will follow with her within 24 hours after surgery for discharge. DANYELL Patel/JIMENA /[id number]
--- NOTE | 2019-08-03 19:30 | NUR ---
Patient received lying in bed. AAO x 4. Patient had no complaints of pain. Respirations even and non-labored. Dressing to right foot CDI. Safety measures implemented. Patient instructed to call for assistance when needed. Call light within reach.
[2019-08-03] MEDS: SIMVASTATIN 40 MG TAB PO SCH (21:21)
[2019-08-03] MEDS: TRAZODONE HCL 50 MG TAB PO SCH (23:30)
[2019-08-03] MEDS: MELATONIN 5 MG TABLET PO SCH (23:30)
[2019-08-04] VITALS (9 sets, daily range): BP systolic 103–142; BP diastolic 50–71
[2019-08-04] MEDS: VANCOMYCIN 750MG/NS 150ML IVPB 150 ML IV SCH ×2 (05:00→16:47)
--- NOTE | 2019-08-04 06:53 | NUR ---
Patient resting comfortably. Walking rounds done. BSSR given to oncoming nurse.
--- NOTE | 2019-08-04 07:25 | NUR ---
DOWN TO OR LEFT IN STABLE CONDITION
[2019-08-04] MEDS: INSULIN LISPRO 100 UNIT/1 ML 3ML VIAL SQ SCH ×4 (07:30→21:48)
[2019-08-04] MEDS ORDERED: BUPIVACAINE HCL 0.5% INJ 30 ML VIAL INJ ONE (07:41)
[2019-08-04] MEDS ORDERED: BACITRACIN 50,000 UNIT VIAL ONE (07:41)
[2019-08-04] MEDS: MUPIROCIN 2% OINT 22 GM TUBE TOP SCH (09:00)
[2019-08-04] MEDS: PREGABALIN 75 MG CAP PO SCH ×2 (09:00→16:48)
--- NOTE | 2019-08-04 09:43 | NUR ---
back to rm aaxo3, dsg to r foot c/d/i, denies pain at this time, updated on poc vocied understanding, call light in reach will continue to monitor
[2019-08-04] MEDS: GEMFIBROZIL 600 MG TAB PO SCH (10:30)
[2019-08-04] MEDS: MORPHINE SULFATE INJ 4 MG/ML INJ 1ML IV PRN ×2 (10:30→23:18)
[2019-08-04] MEDS: INSULIN GLARGINE 100 UNITS/ML VIAL SQ SCH ×2 (10:30→21:47)
[2019-08-04] MEDS: PANTOPRAZOLE SOD 40 MG TABEC PO SCH (10:30)
[2019-08-04] MEDS: CITALOPRAM HYDROBROMIDE 20 MG TAB PO SCH (10:30)
--- NOTE | 2019-08-04 11:49 | Progress Note ---
DATE: SUBJECTIVE: The patient is seen and evaluated. Discussed with Dr. Lopez in detail. Discussed with the patient. Please refer to chart for my information. REVIEW OF SYSTEMS: Just came back from operating room, seems to be alert and oriented. No nausea, vomiting, fever, chills, chest pain, shortness of breath, headache, rash, or dysuria. Pain is controlled. PHYSICAL EXAMINATION: VITAL SIGNS: Temperature is 97.4, pulse 75, respirations 20, blood pressure 119/65. GENERAL: Alert and oriented, no acute distress. CV: S1, S2. CHEST: Equal expansion. Clear to auscultation. No acute distress. ABDOMEN: Soft. No tenderness. No distention. HEENT: Moist. No pallor. No JVD. EXTREMITIES: Right foot is dressed with surgical dressing. The patient is status post amputation of her 3rd toe on the right foot by Dr. Childers. MEDICATIONS: Medication list reviewed. From Infectious Disease point of view, the patient is on Rocephin and vancomycin IV. LABORATORY STUDIES: No new CBC or BMP. Toxicology; vancomycin trough is 13.6 today. Serology; no new serology available. MICROBIOLOGY: Wound culture from 08/04/2019 is pending. RADIOLOGY: No new radiology. ASSESSMENT AND PLAN: This is a 54-year-old female with complicated past medical history including diabetes, chronic kidney disease, and hypertension. The patient has infection of the right 3rd toe which was positive for osteomyelitis by MRI, status post amputation of the third toe this morning. Followup with the cultures from operating room. Continue with antibiotic at this point. Continue with wound care. Further management of this patient is based on progression of her surgical site and cellulitis. Continue to monitor the patient clinically and follow with the labs. Continue with PT/OT. MD HEBERT Simmons/JIMENA /[id number]
--- NOTE | 2019-08-04 14:55 | Operative Report ---
DATE OF PROCEDURE: SURGEON: Mickey Childers DPM ROOM NUMBER: Inpatient, room #210. PREOPERATIVE DIAGNOSIS: Osteomyelitis, 3rd digit right foot. POSTOPERATIVE DIAGNOSIS: Osteomyelitis, 3rd digit right foot. TITLE OF THE OPERATION: Amputation, 3rd digit right foot. ANESTHESIA: General endotracheal. HEMOSTASIS: A right thigh tourniquet at 350 mmHg. PROCEDURE IN DETAIL: The patient was taken to the operating room in a mildly sedated state and placed on the operating table in supine position. Following induction of general anesthetic, the right foot was prepped and draped in usual aseptic manner utilizing Betadine prep. The patient was placed on the operating table prior to performing following procedure. Procedure #1: Amputation, 3rd digit right foot. A hockey stick-shaped incision was made circumferentially around the intermediate phalanx and extending distally onto the dorsum of the right foot. The incision was deepened via sharp and blunt dissection. The intermediate and distal phalanx were removed in amputation and all underlying tissue was irrigated with copious amounts of sterile saline solution. Prior to irrigation, a culture was taken of the underlying soft tissue and bone. Deep closure was 3-0 Vicryl, subcutaneous closure was 4-0 Vicryl, and skin closure 4-0 nylon. The patient was dressed in the appropriate mildly compressive dressing and left the operating room, vital signs stable in apparent satisfactory condition having tolerated both anesthetic and procedure very well. DANYELL Patel/JIMENA /[id number]
[2019-08-04] MEDS ORDERED: EPHEDRINE SULFATE INJ 50 MG/ML VIAL ONE (15:41)
[2019-08-04] MEDS ORDERED: PROPOFOL IV EMULSION 10 MG/ML 20 ML VIAL ONE (15:41)
[2019-08-04] MEDS ORDERED: LIDOCAINE HCL 2% LOCAL INJ 5 ML SDV VIAL INJ ONE (15:41)
[2019-08-04] MEDS ORDERED: SEVOFLURANE INHAL SOLN 250 ML PEN BTL ONE (15:41)
[2019-08-04] MEDS ORDERED: ONDANSETRON HCL INJ 2MG/ML 2ML 2 MG/ML VIAL ONE (15:41)
[2019-08-04] MEDS ORDERED: DEXAMETHASONE SOD PHOS INJ 4 MG/ML VIAL ONE (15:41)
[2019-08-04] MEDS: CEFTRIAXONE SOD 2 GM/NS 100 ML 100 ML IV SCH (15:45)
--- NOTE | 2019-08-04 19:03 | NUR ---
report given to oncoming night nurse, pt left in stable condition, call light in reach will continue to monitor
[2019-08-04] MEDS: SIMVASTATIN 40 MG TAB PO SCH (21:13)
[2019-08-05] VITALS: BP 126/69
[2019-08-05] MEDS: TRAZODONE HCL 50 MG TAB PO SCH (00:45)
[2019-08-05] MEDS: MELATONIN 5 MG TABLET PO SCH (00:45)
[2019-08-05 04:00] VITALS: BP 112/47
[2019-08-05] MEDS: VANCOMYCIN 750MG/NS 150ML IVPB 150 ML IV SCH ×2 (04:26→16:00)
[2019-08-05 05:17] LABS: BASOPHILS % 0.3 % (0.0-1.0); EOSINOPHILS # (AUTO) 0.1 (0.0-0.4); EOSINOPHILS % 0.6 % (0.0-6.0); HEMATOCRIT 33.3 % (34.2-44.1); HEMOGLOBIN 10.8 g/dL (12.0-16.0); LYMPHOCYTES # (AUTO) 2.7 (1.0-3.2); LYMPHOCYTES % 25.5 % (18.0-39.1); MEAN CORPUSCULAR HEMOGLOBIN 29.6 pg (28-32); MEAN CORPUSCULAR HGB CONC 32.4 g/dL (31-35); MEAN CORPUSCULAR VOLUME 91.2 fL (81-99); MONOCYTES # (AUTO) 0.7 (0.2-0.8); MONOCYTES % 6.4 % (4.4-11.3); NEUTROPHILS % 66.7 % (38.7-80.0); PLATELET COUNT 215 x10e3/uL (140-360); RED BLOOD COUNT 3.65 x10e6/uL (3.6-5.1); RED CELL DISTRIBUTION WIDTH 12.5 % (11.7-14.4)
[2019-08-05 05:26] LABS: ANION GAP 13.5 mmol/L (8-16); CALCIUM 9.3 mg/dL (8.4-10.2); CREATININE, SERUM 1.39 mg/dL (0.57-1.11); POTASSIUM 4.5 mmol/L (3.5-5.1)
--- NOTE | 2019-08-05 07:10 | NUR ---
RCD PT AT BED PT IS ALERT AND ORIENTED PT RESTING ON BED IV PATENT BY SALINE FLUSH BED LOW AND LOCKED CALL LIGHT IN REACH
[2019-08-05] MEDS: INSULIN LISPRO 100 UNIT/1 ML 3ML VIAL SQ SCH ×3 (07:30→16:30)
[2019-08-05] MEDS: PANTOPRAZOLE SOD 40 MG TABEC PO SCH (07:30)
[2019-08-05 08:44] VITALS: BP 112/47
[2019-08-05] MEDS: PREGABALIN 75 MG CAP PO SCH ×2 (09:00→16:55)
[2019-08-05] MEDS: CITALOPRAM HYDROBROMIDE 20 MG TAB PO SCH (09:00)
[2019-08-05] MEDS: INSULIN GLARGINE 100 UNITS/ML VIAL SQ SCH (09:00)
[2019-08-05] MEDS: GEMFIBROZIL 600 MG TAB PO SCH (09:00)
[2019-08-05] MEDS: MUPIROCIN 2% OINT 22 GM TUBE TOP SCH (09:00)
[2019-08-05 09:33] VITALS: BP 105/50
--- NOTE | 2019-08-05 12:26 | Progress Note ---
DATE: SUBJECTIVE: The patient is seen and evaluated. Available labs and notes reviewed. Discussed with Dr. Lopez. Discussed with the nurse. REVIEW OF SYSTEMS: No nausea, vomiting, fever, chills, chest pain, shortness of breath, headache, rash, dysuria, pain seems to be controlled. PHYSICAL EXAMINATION: VITAL SIGNS: Temperature is 97.1, pulse is 58, respiration 19, blood pressure 105/50. GENERAL: Alert and oriented. No acute distress. CV: S1-S2. CHEST: Equal expansion. Clear to auscultation. No acute distress. ABDOMEN: Soft, obese, nontender. Positive bowel sounds. HEENT: Moist. No pallor. No JVD. EXTREMITIES: Right foot with surgical dressing. No obvious acute finding. MEDICATIONS: Reviewed, as far as Infectious Disease point of view, the patient is on vancomycin IV and Rocephin. LABORATORY STUDIES: White count of 10.53, hemoglobin 10.8, platelet 215. Sodium 140, potassium 4.5, creatinine 1.3. Toxicology; vancomycin trough 13.6. Serology: Coronavirus PCR negative on 07/29/2019. Microbiology; wound culture from 08/04/2019 from Surgery negative on Gram stain with the culture pending. ASSESSMENT AND PLAN: 1. Osteomyelitis of the right 3rd toe by MRI. 2. Cellulitis of the right 3rd toe. 3. Chronic kidney disease. 4. Hypertension. 5. Diabetes. 6. Obesity. 7. Debility. 8. The patient is now status post amputation of the right 3rd toe. Cultures pending. However, Gram stain was negative on 08/03. The patient remains on vancomycin IV and Rocephin, and vancomycin trough as mentioned above. Continue with wound care. Currently, monitor the patient. Clinically follow with the labs. Discussed with Dr. Lopez in details. Discharge planning noted, pending clearance from Podiatry. Please refer to chart for more information. Dictated by Jay Reynolds PA-C (Al) Kenzie Lopez MD /MODL /[id number]
[2019-08-05 12:35] VITALS: BP 132/79
--- NOTE | 2019-08-05 12:56 | NUR ---
SPOKE WITH PT [facility], SHE HAS NOT HAD [facility], GAVE CHOICES OF [facility] AND [facility], SIGNED CHOICE FOR [facility], FILED IN CHART AND FAXED CLINICALS TO COMPANY
[2019-08-05] MEDS ORDERED: DOXYCYCLINE HY100 MG PO (13:30)
[2019-08-05] MEDS ORDERED: CIPRO500 MG PO (13:31)
--- NOTE | 2019-08-05 14:15 | NUR ---
AC TO [facility] SHE SET UP [facility] PAGED AND NOTIFIED DR OBRIEN GOT THE DISCHARGE ORDER
[2019-08-05] MEDS: CEFTRIAXONE SOD 2 GM/NS 100 ML 100 ML IV SCH (14:23)
--- NOTE | 2019-08-05 14:30 | NUR ---
PT REQUESTED TO SEE DR FITZGERALD BEFORE GOING HOME SO PAGED DR FITZGERALD
[2019-08-05 16:29] VITALS: BP 104/57
--- NOTE | 2019-08-05 16:29 | NUR ---
DC PICC LINE BY ORDER NO SIGNS OF ANY BLEEDING NOTED DRESSING INTACT
--- NOTE | 2019-08-05 17:22 | NUR ---
Nutrition Screen Note RD Recommendation for Physician: -Continue current diet as ordered Plan of Care: RD following, monitoring for tolerance and adequacy Nutrition reason for involvement: Length of stay Primary Diagnose(s): cellulitis of right foot PMH: Multiple diabetic toe ulcer with previous amputation, Morbid obesity, Diabetes type 2, on insulin therapy, Insomnia, depression, anxiety disorder, hypertension, and chronic kidney disease Ht: 66 in Wt:270 lb BMI: 43.6 kg/m2 IBW:[address] Assessment: (08/05/19) Chart reviewed. Labs and meds reviewed. Pt is a 54 year old female admitted with cellulitis of right foot. Pt reports a good appetite. It is recorded pt has been eating 75-100% of meals. No N/V noted. No chewing/swallowing issues. Will continue to monitor. Current Diet: 1800 ADA Malnutrition Evaluation (08/05/19) The patient does not meet criteria for a specified degree of malnutrition at this time. Will re-evaluate at follow-up as appropriate. Diet Education Needs Assessment: Pt declined the need for diet education at time of visit Nutrition Care Level: low Signed: Adenike Santiago, RD, LD
--- NOTE | 2019-08-05 17:44 | NUR ---
Spoke to Dorothy with [facility], they are accepting pt. Informed her that pt will be discharging today after podiatry MD sees her.
--- NOTE | 2019-08-05 18:00 | NUR ---
DR GAMING CAME TO SEE THE PT DRESSING CHANGED ON THE RT FOOT ,NO SIGNS OF BLEEDING NOTED ON PICC LINE SITE
--- NOTE | 2019-08-05 18:15 | NUR ---
PT WENT HOME IN SAFE CONDITION WITH HER SON
== END 2019-08-05 18:14 | DRG 617 ==
LOC: ER 22:20 → ERHOLD 23:02 → MED/SURG2 07-30 01:23 → OBSVTOIN 07-31 08:47
PROVIDERS: ADMIT Internal Medicine; ATTEND Internal Medicine
PROC: 02HV33Z Insertion of Infusion Device into Superior Vena Cava, Percutaneous Approach (ICD-10-PCS; 2019-07-30)
PROC: B548ZZA Ultrasonography of Superior Vena Cava, Guidance (ICD-10-PCS; 2019-07-30)
PROC: 0Y6T0Z0 Detachment at Right 3rd Toe, Complete, Open Approach (ICD-10-PCS; principal; 2019-08-04 08:00)
DX: E11.69 Type 2 diabetes mellitus with other specified complication (principal); M86.171 Other acute osteomyelitis, right ankle and foot; Z68.41 Body mass index [BMI] 40.0-44.9, adult; I12.9 Hypertensive chronic kidney disease with stage 1 through stage 4 chronic kidney disease, or unspecified chronic kidney disease; E11.21 Type 2 diabetes mellitus with diabetic nephropathy; N18.9 Chronic kidney disease, unspecified; L97.509 Non-pressure chronic ulcer of other part of unspecified foot with unspecified severity; F32.9 Major depressive disorder, single episode, unspecified; E78.5 Hyperlipidemia, unspecified; E11.22 Type 2 diabetes mellitus with diabetic chronic kidney disease; Z90.49 Acquired absence of other specified parts of digestive tract; Z98.84 Bariatric surgery status; Z82.49 Family history of ischemic heart disease and other diseases of the circulatory system; Z89.429 Acquired absence of other toe(s), unspecified side; E66.01 Morbid (severe) obesity due to excess calories; L03.031 Cellulitis of right toe; E11.621 Type 2 diabetes mellitus with foot ulcer; E87.5 Hyperkalemia; Z79.84 Long term (current) use of oral hypoglycemic drugs; E11.42 Type 2 diabetes mellitus with diabetic polyneuropathy; G47.00 Insomnia, unspecified
CPT/HCPCS: 36415; 36569; 80048; 80053; 80202; 82948; 83036; 84443; 85025; 85610; 85651; 85730; 87071; 87075; 87205; 87635; 88304; 88305; 88311; 93005; 94640; 99251; 99284; G0378; J0295; J0696; J1100; J1815; J1940; J2001; J2270; J2405; J2543; J7030

== ENCOUNTER → 2020-04-02 | Outpatient (CLI) | payer MEDICARE ==
[~2020-04-02] MED LIST: CIPRO500 MG PO; CITALOPRAM HBR20 MG PO; DOXYCYCLINE HY100 MG PO; GEMFIBROZIL600 MG PO; LEVEMIR FL100 UNIT/1 SC; LOVASTATIN40 MG PO; LYRICA150 MG PO; MELATONIN3 M1 PO; METFORMIN HCL500 M2 PO; OMEPRAZOLE40 MG PO; TRAZODONE HCL50 MG PO
== END ==
LOC: MAMMO 10:09
PROVIDERS: ATTEND Obstetrics & Gynecology
DX: Z12.31 Encounter for screening mammogram for malignant neoplasm of breast (principal)
CPT/HCPCS: 77067

== ENCOUNTER 2021-11-12 18:09 | Emergency (ER) | payer MEDICARE ==
[~2021-11-12] VITALS: Ht 167.6 cm; Wt 122.5 kg
[2021-11-12 19:30] VITALS: BP 129/84
== END 2021-11-12 18:46 | disposition home or self-care (01) ==
LOC: ER 18:13
DX: I87.8 Other specified disorders of veins (principal); I10 Essential (primary) hypertension; E11.9 Type 2 diabetes mellitus without complications; N28.9 Disorder of kidney and ureter, unspecified; E78.5 Hyperlipidemia, unspecified; F32.A Depression, unspecified
CPT/HCPCS: 99283

== ENCOUNTER 2024-05-10 18:35 | Emergency (ER) | payer MEDICARE ==
[~2024-05-10] VITALS: Ht 167.6 cm; Wt 122.5 kg
[2024-05-10 19:18] VITALS: TEMP 98.2
[2024-05-10 19:29] LABS: BASOPHILS % 0.4 % (0.0-1.0); EOSINOPHILS # (AUTO) 0.2 (0.0-0.4); EOSINOPHILS % 2.1 % (0.0-6.0); HEMATOCRIT 31.9 % (34.2-44.1); HEMOGLOBIN 10.4 g/dL (12.0-16.0); LYMPHOCYTES # (AUTO) 2.6 (1.0-3.2); MEAN CORPUSCULAR HEMOGLOBIN 30.2 pg (28-32); MEAN CORPUSCULAR HGB CONC 32.6 g/dL (31-35); MEAN CORPUSCULAR VOLUME 92.7 fL (81-99); MONOCYTES # (AUTO) 0.5 (0.2-0.8); MONOCYTES % 6.3 % (4.4-11.3); NEUTROPHILS % 54.9 % (38.7-80.0); PLATELET COUNT 160 x10e3/uL (140-360); RED BLOOD COUNT 3.44 x10e6/uL (3.6-5.1); RED CELL DISTRIBUTION WIDTH 13.2 % (11.7-14.4); WHITE BLOOD COUNT 7.27 x10e3/uL (4.8-10.8)
[2024-05-10] MEDS ORDERED: SODIUM CHLORIDE FLUSH 10 ML SYR IV PRN (19:30)
[2024-05-10 19:45] LABS: ALBUMIN 3.6 g/dL (3.5-5.0); ALBUMIN/GLOBULIN RATIO 1.2 (0.8-2.0); ANION GAP 12.8 mmol/L (8-16); BILIRUBIN,TOTAL 0.3 mg/dL (0.2-1.2); CALCIUM 8.8 mg/dL (8.4-10.2); CREATININE, SERUM 1.49 mg/dL (0.57-1.11); TOTAL PROTEIN 6.7 g/dL (6.5-8.1)
[2024-05-10 19:50] LABS: TROPONIN I 0.004 ng/mL (0-0.300)
[2024-05-10 19:58] LABS: POTASSIUM 5.8 mmol/L (3.5-5.1)
[2024-05-10 20:30] VITALS: PULSE 68; RESP 18
[2024-05-10 21:52] VITALS: BP 134/69; O2SAT 100
== END 2024-05-10 21:53 | disposition home or self-care (01) ==
LOC: ER 21:28
DX: R07.89 Other chest pain (principal); I12.9 Hypertensive chronic kidney disease with stage 1 through stage 4 chronic kidney disease, or unspecified chronic kidney disease; E11.22 Type 2 diabetes mellitus with diabetic chronic kidney disease; N18.9 Chronic kidney disease, unspecified; E78.5 Hyperlipidemia, unspecified; F32.A Depression, unspecified; R94.31 Abnormal electrocardiogram [ECG] [EKG]; Z98.84 Bariatric surgery status
CPT/HCPCS: 36415; 71045; 80053; 84484; 85025; 93005; 94760; 99284

== ENCOUNTER 2024-11-12 19:12 | Inpatient (IN) | payer MEDICARE ==
[~2024-11-12] VITALS: Ht 167.6 cm; Wt 127.3 kg
[2024-11-12 20:13] LABS: BASOPHILS % 0.3 % (0.0-1.0); EOSINOPHILS % 2.3 % (0.0-6.0); LYMPHOCYTES % 25.8 % (18.0-39.1); MONOCYTES % 7.0 % (4.4-11.3); NEUTROPHILS % 64.4 % (38.7-80.0); RED CELL DISTRIBUTION WIDTH 12.5 % (11.7-14.4)
[2024-11-12 20:21] VITALS: PULSE 69; RESP 18; TEMP 98.6
[2024-11-12 20:38] LABS: EST GLOMERULAR FILTRATION RATE 35.0 ML/MIN (>=60)
[2024-11-12] MEDS ORDERED: IOPAMIDOL 370 MG/ML 100 ML INFUS..BTL INJ ONE (20:50)
[2024-11-12] MEDS ORDERED: Morphine 4mg INJECTION 4 MG/ML INJ IV PRN (21:30)
[2024-11-12] MEDS ORDERED: ONDANSETRON HCL INJ 2MG/ML 2ML 2 MG/ML VIAL IV PRN (21:30)
[2024-11-12] MEDS: ASPIRIN 81 MG CHEW TAB PO ONE (22:18)
[2024-11-12] MEDS: DEXTROSE 50% SYRINGE 50 ML IV ONE (22:19)
[2024-11-12] MEDS: SODIUM BICARBONATE 8.4% INJ 50 ML SYR IV STA (22:19)
[2024-11-12] MEDS: SODIUM CHLORIDE 0.9% 1000ML 1,000 ML IV SCH (22:21)
[2024-11-12] MEDS: INSULIN REGULAR, HUMAN 100 UNIT/1 ML IV ONE (22:24)
[2024-11-12] MEDS: FUROSEMIDE INJ 10 MG/ML 10 ML VIAL IV ONE (22:33)
[2024-11-12 23:12] VITALS: BP 154/77; PULSE 64; RESP 18; TEMP 97.6; O2SAT 100
[2024-11-12 23:15] VITALS: BP 154/77; PULSE 64; RESP 18; TEMP 97.6; O2SAT 100
[2024-11-13 04:00] VITALS: BP 126/51; PULSE 60; RESP 18; TEMP 98.6; O2SAT 96
[2024-11-13] MEDS ORDERED: KERENDIA20 MG PO (04:38)
[2024-11-13] MEDS ORDERED: JANUVIA50 MG PO (04:38)
[2024-11-13] MEDS ORDERED: TRESIBA100 UNIT/1 SC (04:38)
[2024-11-13] MEDS ORDERED: LOSARTAN POTASS50 MG PO (04:38)
[2024-11-13] MEDS ORDERED: INSULIN AS100 UNIT/3 SC (04:38)
[2024-11-13] MEDS ORDERED: CRESTOR40 MG PO (04:38)
[2024-11-13 08:40] VITALS: BP 122/66; PULSE 62; RESP 18; TEMP 97.5; O2SAT 100
[2024-11-13 13:29] VITALS: BP 142/97; PULSE 68; RESP 18; TEMP 97.7; O2SAT 97
[2024-11-13] MEDS ORDERED: ACETAMINOPHEN 325 MG TAB PO PRN (14:30)
[2024-11-13] MEDS ORDERED: DEXTROSE 50% SYRINGE 50 ML IV PRN (14:30)
[2024-11-13] MEDS: PREGABALIN 50 MG CAP PO SCH (16:23)
[2024-11-13] MEDS: INSULIN LISPRO 100 UNIT/1 ML 3ML VIAL SQ SCH (16:50)
[2024-11-13 17:25] VITALS: BP 157/70; PULSE 62; RESP 20; TEMP 97.8; O2SAT 100
[2024-11-13] MEDS: SODIUM CHLORIDE 0.45% 1,000 ML IV SCH (17:33)
[2024-11-13 20:00] VITALS: BP 144/65; PULSE 59; RESP 16; TEMP 97.2; O2SAT 98
[2024-11-13] MEDS: TRAZODONE HCL 50 MG TAB PO SCH (21:19)
[2024-11-14] VITALS (7 sets, daily range): BP systolic 123–152; BP diastolic 55–89; PULSE 50–62; RESP 16–20; TEMP 97.2–98; O2SAT 97–100
[2024-11-14] MEDS: PANTOPRAZOLE SOD 40 MG TABEC PO SCH (05:03)
[2024-11-14] MEDS: ASPIRIN 81 MG ENTERIC COATED PO SCH (11:30)
[2024-11-14] MEDS: CITALOPRAM HYDROBROMIDE 20 MG TAB PO SCH (11:30)
[2024-11-14] MEDS: FUROSEMIDE INJ 10 MG/ML 4 ML VIAL IV SCH (18:32)
[2024-11-15] VITALS (7 sets, daily range): BP systolic 121–155; BP diastolic 60–83; PULSE 52–82; RESP 18–20; TEMP 97.5–98.2; O2SAT 97–100
[2024-11-15 05:24] LABS: BASOPHILS % 0.6 % (0.0-1.0); EOSINOPHILS % 2.0 % (0.0-6.0); LYMPHOCYTES % 37.6 % (18.0-39.1); MONOCYTES % 7.4 % (4.4-11.3); NEUTROPHILS % 51.9 % (38.7-80.0); RED CELL DISTRIBUTION WIDTH 12.2 % (11.7-14.4)
[2024-11-15 06:07] LABS: % IRON SATURATION 30.0 % (15-50); CHOL/HDL RATIO 4.7 (3.0-3.6); EST GLOMERULAR FILTRATION RATE 41.0 ML/MIN (>=60); LDL CHOLESTEROL 79.0 MG/DL (60-130); PHOSPHORUS 3.6 MG/DL (2.3-4.7)
[2024-11-15] MEDS: CYANOCOBALAMIN INJ 1,000 MCG/ML VIAL IM ONE (08:37)
[2024-11-16] VITALS: BP 129/79; PULSE 61; RESP 19; TEMP 97; O2SAT 100
[2024-11-16 06:08] VITALS: BP 123/57; PULSE 60; RESP 19; TEMP 97.2; O2SAT 98
[2024-11-16 08:10] VITALS: BP 135/72; PULSE 56; RESP 19; TEMP 97.7; O2SAT 98
[2024-11-16 08:55] VITALS: BP 135/72; PULSE 56; RESP 18; TEMP 97.7; O2SAT 100
== END 2024-11-16 12:30 | disposition home or self-care (01) | DRG 291 ==
LOC: ER 19:19 → ERHOLD 21:24 → MED/SURG2 23:07 → OBSVTOIN 11-13 14:25
PROVIDERS: ADMIT Internal Medicine; ATTEND Internal Medicine
DX: I13.0 Hypertensive heart and chronic kidney disease with heart failure and stage 1 through stage 4 chronic kidney disease, or unspecified chronic kidney disease (principal); I50.33 Acute on chronic diastolic (congestive) heart failure; E66.01 Morbid (severe) obesity due to excess calories; Z68.42 Body mass index [BMI] 45.0-49.9, adult; I20.89 Other forms of angina pectoris; E11.22 Type 2 diabetes mellitus with diabetic chronic kidney disease; E87.6 Hypokalemia; N18.32 Chronic kidney disease, stage 3b; F41.9 Anxiety disorder, unspecified; F32.9 Major depressive disorder, single episode, unspecified; E78.5 Hyperlipidemia, unspecified; Z79.4 Long term (current) use of insulin; Z79.84 Long term (current) use of oral hypoglycemic drugs; Z90.49 Acquired absence of other specified parts of digestive tract; Z98.84 Bariatric surgery status
CPT/HCPCS: 36415; 71260; 80053; 80061; 82550; 82607; 82746; 82948; 83036; 83540; 83690; 83735; 83880; 84100; 84443; 84466; 84484; 85025; 85379; 93005; 93306; 96372; 99284; G0378; J1938; J1940; J2470; J3420; J7030; J7799; Q9967